=== PATIENT | male | born 2000 | race Caucasian/White ===

== ENCOUNTER 2024-07-07 15:28 | Emergency (ER) | payer OTHER ==
[~2024-07-07] VITALS: Ht 180.3 cm; Wt 81.6 kg
[2024-07-07] MEDS ORDERED: ONDANSETRON HCL/PF 4 MG/2 ML VIAL ONE (17:04)
[2024-07-07] MEDS ORDERED: HYDROMORPHONE 1 MG/1 ML DISP.SYRIN ONE (17:05)
[2024-07-07] MEDS: IV NS 0.9% 500 ML BAG IV ONE (17:34)
[2024-07-07] MEDS: HYDROMORPHONE INJ 2 MG/ML DISP.SYRIN IV ONE (17:36)
[2024-07-07] MEDS: ONDANSETRON HCL/PF 4 MG/2 ML VIAL IVP ONE (17:38)
[2024-07-07 18:20] VITALS: BP 184/90; TEMP 98.3; O2SAT 99
== END 2024-07-07 18:21 | disposition home or self-care (01) ==
LOC: ER 15:37
DX: S43.015A Anterior dislocation of left humerus, initial encounter (principal); Y93.B2 Activity, push-ups, pull-ups, sit-ups; Y93.89 Activity, other specified; Y92.39 Other specified sports and athletic area as the place of occurrence of the external cause; Y99.8 Other external cause status
CPT/HCPCS: 99284; 23650; 96374; 96361; 96375; 73030 ×2; J2405; J7040; J1171